=== PATIENT | male | born 1960 | race Caucasian/White ===

== ENCOUNTER 2019-01-11 09:03 | Inpatient (IN) | payer BC ==
[2019-01-11] MEDS: CALCIUM GLUCONATE 10% 1 GM in DEXTROSE 5% 100 ML IVPB (09:18)
[2019-01-11] MEDS ORDERED: ONDANSETRON 4 MG INJ IV ×2 (10:30→15:00)
[2019-01-11] MEDS ORDERED: ACETAMINOPHEN 325 MG TAB PO ×2 (10:30→15:00)
[2019-01-11] MEDS: ALPRAZOLAM 0.25 MG TAB PO (14:45)
[2019-01-11] MEDS ORDERED: ACETAMINOPHEN 650 MG SUPP PR (15:00)
[2019-01-11] MEDS: HYDROXYUREA 500 MG CAP PO ×2 (15:00→21:56)
[2019-01-11] MEDS ORDERED: HYDROCODONE/APAP (5/325) TAB PO (15:00)
[2019-01-11] MEDS ORDERED: NACL 0.9% 3 ML SYG IV (15:00)
[2019-01-11] MEDS ORDERED: morphine 2 MG INJ IV (15:00)
[2019-01-11] MEDS ORDERED: BISACODYL (EC) 5 MG TAB PO (15:00)
[2019-01-11] MEDS ORDERED: DOCUSATE SODIUM 100 MG CAP PO (15:00)
[2019-01-11] MEDS ORDERED: ALPRAZOLAM 0.25 MG TAB PO (15:00)
[2019-01-11] MEDS: CALCIUM ACETATE 667 MG CAP PO (18:42)
[2019-01-11] MEDS: SENNA/DOCUSATE NA (8.6MG/50MG) TAB PO (18:49)
[2019-01-11] MEDS: FAMOTIDINE 20 MG TAB PO (21:18)
[2019-01-11] MEDS: ZOLPIDEM 5 MG TAB PO (21:50)
[2019-01-12] MEDS: CALCIUM ACETATE 667 MG CAP PO ×3 (07:33→16:55)
[2019-01-12] MEDS: SENNA/DOCUSATE NA (8.6MG/50MG) TAB PO (07:36)
[2019-01-12] MEDS: ENOXAPARIN 30 MG/0.3 ML SYG SC (07:36)
[2019-01-12] MEDS ORDERED: RUXOLITINIB PHOSPHATE 5 MG XX (09:00)
[2019-01-12] MEDS: HEPARIN 1000 UNITS/ML 10 ML INJ CATHETER (19:25)
[2019-01-12] MEDS: HYDROXYUREA 500 MG CAP PO (20:35)
[2019-01-12] MEDS: FAMOTIDINE 20 MG TAB PO (20:36)
== END 2019-01-12 21:01 | disposition home or self-care (01) | DRG 312 ==
LOC: E/R 09:03 → 6WM 10:28
PROC: 5A1D70Z Performance of Urinary Filtration, Intermittent, Less than 6 Hours Per Day (ICD-10-PCS; principal; 2019-01-12)
DX: R55 Syncope and collapse (principal); N18.6 End stage renal disease; I12.0 Hypertensive chronic kidney disease with stage 5 chronic kidney disease or end stage renal disease; D75.81 Myelofibrosis; R00.1 Bradycardia, unspecified; Z99.2 Dependence on renal dialysis; K59.00 Constipation, unspecified; Z90.81 Acquired absence of spleen; E87.5 Hyperkalemia
CPT/HCPCS: 36415; 71045; 80048; 80053; 83036; 83735; 84100; 84443; 84484; 85025; 85610; 85730; 87340; 90935; 93005; 96374; 99285-25